=== PATIENT | female | born 1980 | race Caucasian/White ===

== ENCOUNTER 2017-06-13 06:01 | Inpatient (IN) ==
[2017-06-13] MEDS ORDERED: BUTORPHANOL 2 MG/ML VIAL IV PRN (06:12)
[2017-06-13] MEDS ORDERED: MEPERIDINE 50 MG/1 ML VIAL IV PRN (06:12)
[2017-06-13] MEDS ORDERED: ACETAMINOPHEN 325 MG TABLET PO PRN (06:12)
[2017-06-13] MEDS ORDERED: OXYTOCIN/LR 20 UNIT/1,000 ML BAG IV ONE (06:48)
[2017-06-13] MEDS ORDERED: SODIUM PHOSPHATE ENEMA 133 ML BOTTLE RECTAL ONE (07:03)
[2017-06-13 07:07] LABS: Basophils % 0.2 % (0.0-0.8); Eosinophils # 0.1 10*3/uL (0.0-0.87); Eosinophils % 0.8 % (0.00-10.9); Hematocrit 32.2 VOL% (35.7-47.0); Hemoglobin 11.3 GM/DL (12.0-16.0); Immature Granulocytes % 1.2 %; Immature Granulocytes Absolute 0.13 #; Lymphocytes # 1.7 10*3/uL (1.4-4.0); Lymphocytes % 16.2 % (21.3-54.2); Mean Corpuscular HGB Conc 35.1 GM/DL (32-36); Mean Corpuscular Hemoglobin 31 PG (27-34); Mean Corpuscular Volume 88.7 FL (87-102); Mean Platelet Volume 12.1 FL (9.6-12.0); Monocytes # 0.6 10*3/uL (0.11-0.8); Monocytes % 5.6 % (1.7-12.7); Neutrophils # 8.1 10*3/uL (1.4-7.4); Platelet Count 130 T/CUMM (130-400); Red Blood Count 3.63 MC/CUMM (3.8-5.5); Red Cell Distribution Width 13.5 % (9.3-17.3); White Blood Count 10.6 T/CUMM (4-12)
[2017-06-13 07:35] LABS: Alanine Aminotransferase 15 U/L (13-56); Albumin 2.3 G/DL (3.4-5.0); Alkaline Phosphatase 124 U/L (45-117); Aspartate Amino Transferase 13 U/L (0-37); Bilirubin,Total < 0.39 MG/DL (0.2-1.0); Blood Urea Nitrogen 12 MG/DL (7-18); Calcium 8.7 MG/DL (8.5-10.1); Glucose 87 MG/DL (74-106); Osmolality,Calculated 275.5 MOS/KG (273-304); Potassium 3.9 MMOL/L (3.5-5.1); Sodium 139 MMOL/L (136-145)
[2017-06-13] MEDS ORDERED: OXYTOCIN/LR 20 UNIT/1,000 ML BAG IV SCH (08:00)
[2017-06-13] MEDS: LACTATED RINGERS 1,000 ML IV SCH ×2 (08:03→16:51)
[2017-06-13] MEDS: ONDANSETRON 4 MG/2 ML VIAL IV PRN ×2 (11:44→20:00)
[2017-06-13] MEDS ORDERED: CITRIC ACID/SODIUM CITRATE 30 ML UDCUP PO ONE (12:37)
[2017-06-13] MEDS ORDERED: ePHEDrine 50 MG/ML AMP IV PRN (12:37)
[2017-06-13] MEDS ORDERED: FAMOTIDINE 20 MG/2 ML VIAL IV ONE (12:37)
[2017-06-13] MEDS ORDERED: hydrOXYzine HCL 25 MG/1 ML VIAL IM PRN (12:37)
[2017-06-13] MEDS ORDERED: fentaNYL 2 MCG/ROPIV 0.2% EPID 150 ML EPIDURAL SCH (12:37)
[2017-06-13] MEDS ORDERED: diphenhydrAMINE 50 MG/1 ML VIAL IV PRN (12:37)
[2017-06-13] MEDS ORDERED: LACTATED RINGERS 1,000 ML IV ONE (12:37)
[2017-06-13] MEDS ORDERED: PROMETHAZINE 25 MG/1 ML VIAL IM ONE (12:37)
[2017-06-13 15:14] LABS: Apearance,Urine Slightly Hazy (Clear); Bacteria,Urine Occasional /HPF (Few); Bilirubin,Urine Negative (Negative); Blood, Urine Negative (Negative); Glucose,Urine (UA) Negative (Negative); Ketones,Urine 20 mg/dL (Negative); Mucus,Urine Occasional /LPF (Occasional); Nitrite,Urine Negative (Negative); Protein,Urine Negative; RBC,Urine 4 /HPF (0-4); Squamous Epithelial Cell,Urine Occasional /HPF (0-10); Urine Color Yellow (Yellow); Urine Specific Gravity 1.019 (1.001-1.035); Urine Urobilinogen < 2.0 EU/DL (0.2-1.0); WBC,Urine 1 /HPF (0-6)
[2017-06-13] MEDS ORDERED: miSOPROStol 200 MCG TABLET ONE (23:57)
[2017-06-13] MEDS ORDERED: LIDOCAINE 1% 50 ML VIAL ONE (23:57)
[2017-06-13] MEDS ORDERED: METHYLERGONOVINE 0.2 MG/1 ML AMP ONE (23:57)
[2017-06-14] MEDS ORDERED: METHYLERGONOVINE 0.2 MG/1 ML AMP IM ONE (01:00)
[2017-06-14] MEDS ORDERED: ONDANSETRON 4 MG/2 ML VIAL IV PRN (01:35)
[2017-06-14] MEDS ORDERED: BISACODYL 10 MG SUPP RECTAL PRN (01:35)
[2017-06-14] MEDS ORDERED: BENZOCAINE 20%/MENTHOL 0.5% SPRAY 56 GM CAN TOP PRN (01:35)
[2017-06-14] MEDS ORDERED: WITCH HAZEL PADS 100/JAR TOP PRN (01:35)
[2017-06-14] MEDS ORDERED: oxyCODONE/ACETAMINOPHEN 5-325 MG TABLET PO PRN ×2 (01:35)
[2017-06-14] MEDS ORDERED: HYDROCORTISONE 2.5% RECTAL CREAM 30 GM TUBE TOP PRN (01:35)
[2017-06-14] MEDS ORDERED: LANOLIN 50% CREAM 0.3 OZ TUBE TOP PRN (01:35)
[2017-06-14] MEDS ORDERED: DIPH/TET/ACEL PERT BOOSTER VACCINE 0.5 ML VIAL IM ONE (01:35)
[2017-06-14] MEDS ORDERED: OXYTOCIN/LR 20 UNIT/1,000 ML BAG IV ONE (01:35)
[2017-06-14] MEDS ORDERED: RHO(D) IMMUNE GLOBULIN 300 MCG SYRINGE IM ONE (01:35)
[2017-06-14] MEDS ORDERED: MEASLES/MUMPS/RUBELLA VACCINE 0.5 ML VIAL SUBCUT ONE (01:35)
[2017-06-14] MEDS ORDERED: ACETAMINOPHEN 325 MG TABLET PO PRN (01:35)
[2017-06-14] MEDS ORDERED: METHYLERGONOVINE 0.2 MG TABLET PO SCH (02:00)
[2017-06-14] MEDS: IBUPROFEN 800 MG TABLET PO PRN ×3 (02:16→19:48)
[2017-06-14] MEDS ORDERED: ACETAMINOPHEN/CODEINE 300-30 MG TABLET PO PRN (03:20)
[2017-06-14] MEDS: ACETAMINOPHEN/CODEINE 300-30 MG TABLET PO PRN ×3 (03:33→19:48)
[2017-06-14] MEDS: DOCUSATE SODIUM 100 MG CAPSULE PO SCH ×3 (09:05→21:57)
[2017-06-14] MEDS: METHYLERGONOVINE 0.2 MG/1 ML AMP IM SCH ×2 (09:05→18:25)
[2017-06-14 09:12] LABS: Basophils % 0.2 % (0.0-0.8); Eosinophils % 0.1 % (0.00-10.9); Hematocrit 27.8 VOL% (35.7-47.0); Hemoglobin 9.7 GM/DL (12.0-16.0); Immature Granulocytes % 0.7 %; Immature Granulocytes Absolute 0.11 #; Lymphocytes # 1.7 10*3/uL (1.4-4.0); Lymphocytes % 10.2 % (21.3-54.2); Mean Corpuscular HGB Conc 34.9 GM/DL (32-36); Mean Corpuscular Hemoglobin 31 PG (27-34); Mean Corpuscular Volume 88.3 FL (87-102); Mean Platelet Volume 11.6 FL (9.6-12.0); Monocytes # 0.8 10*3/uL (0.11-0.8); Monocytes % 4.7 % (1.7-12.7); Neutrophils # 14.1 10*3/uL (1.4-7.4); Neutrophils % 84.1 % (38.7-73.9); Platelet Count 114 T/CUMM (130-400); Red Blood Count 3.15 MC/CUMM (3.8-5.5); Red Cell Distribution Width 13.8 % (9.3-17.3); White Blood Count 16.7 T/CUMM (4-12)
[2017-06-15] MEDS: METHYLERGONOVINE 0.2 MG/1 ML AMP IM SCH ×2 (01:31→09:25)
[2017-06-15 07:42] VITALS: BP 115/71
[2017-06-15] MEDS: IBUPROFEN 800 MG TABLET PO PRN (08:04)
[2017-06-15] MEDS: ACETAMINOPHEN/CODEINE 300-30 MG TABLET PO PRN (08:04)
[2017-06-15] MEDS: DOCUSATE SODIUM 100 MG CAPSULE PO SCH (08:04)
== END 2017-06-15 15:10 | disposition home or self-care (01) | DRG 775 ==
LOC: N.LDOUT 06:01 → N.LD 06:01 → EDSTATUS 06:01 → N.LD 06:02 → N.OB 06-14 03:00
PROVIDERS: ADMIT Obstetrics & Gynecology; ATTEND Obstetrics & Gynecology